=== PATIENT | male | born 1950 | race Caucasian/White ===

== ENCOUNTER 2017-01-05 02:40 | Emergency (ER) | payer MEDICARE ==
[~2017-01-05] VITALS: Ht 167.6 cm; Wt 145.2 kg
[~2017-01-05 02:40] MED LIST: NAPROSYN500 M1 PO; ROBAXIN-750750 MG PO
[2017-01-05] MEDS ORDERED: LISINOPRIL40 MG PO (02:54)
[2017-01-05] MEDS ORDERED: LEVOTHYROXINE0.05 M2 PO (02:55)
[2017-01-05] MEDS ORDERED: TRAMADOL 50MG T50 MG PO (02:55)
[2017-01-05] MEDS ORDERED: NOVOLIN 70/30 710 ML SC ×2 (02:56)
[2017-01-05] MEDS ORDERED: TOLTERODINE TART4 MG PO (02:57)
--- NOTE | 2017-01-05 03:21 | Emergency Room Report ---
History of Present Illness Time Seen by MD Lacy Presenting Problem in Triage Pt arrived:Wheelchair Presenting Problem:PT C/O RIGHT LEG PAIN X 1 MONTH. PT RPTS PAIN WAS WORSE YESTERDAY. PT RPTS "SORENESS FROM HIP DOWN TO MY FOOT" ON THE RIGHT SIDE. PT DENIES ANY FALLS OR TRAUMAS TO THE LEG. PT RPTS PAIN IN HIS RIGHT KNEE. PT RPTS HE UNABLE TO STRAIGTEN THE RIGHT LEG WITHOUT ASSISTANCE. Onset of symptoms date/time:/ or onset unknown for:MEDICAL HX UNKNOWN Treatment Prior to Arrival: [facility] Provided by: Sepsis Risk Assessment: Temp: 98.6 B/P: 150/68 MAP: 95 Pulse: 76 Resp: 18 Recent fever? N Clinical Suspician of Infection? N Mental Status: 1 - Regular (Normal Baseline) Sepsis Risk:Low Sepsis Risk Have you (or family members/close friends) recently traveled outside the [place]? N If Yes, where/when: Have you had exposure to infectious disease within the past month? N TB? Other? Specify: Source patient, RN notes reviewed, family, old records Exam Limitations no limitations Comment atraumatic pain rt lowerext with pain inc with slr Cardiac Chest Pain Chest pain indicative of cardiac No Timing/Duration this evening Severity moderate ALLERGIES Coded Allergies: No Known Allergies (01/05/17) Home Medications Active Scripts Naproxen (Naprosyn 500MG Tab) 500 MG PO BID 5 Days Prov: 12/05/13 Reported Medications Lisinopril (Lisinopril 40MG) 40 MG PO DAILY #90 Levothyroxine Sodium 0.05 MG PO DAILY #90 Tramadol Hcl (Tramadol 50MG) 50 MG PO PRN PRN PAIN #120 INSULIN NPH HUM/REG INSULIN HM (Novolin 70-30 100 Unit/Ml Vial) 70 UNITS SC AM #100 INSULIN NPH HUM/REG INSULIN HM (Novolin 70-30 100 Unit/Ml Vial) 55 UNITS SC QHS Tolterodine Tartrate (Tolterodine Tartrate ER) 4 MG PO DAILY #30 History Medical History General CAD? No Angina: No MO: No Hypertension? Yes Hyperlipidemia? Yes CHF? No DVT? Yes PE? Yes COPD? No Asthma? No Anemia? No GERD? No Gastric ulcers? No GI Bleed? No Hernia? No Thyroid Problems? No Hypothyroidism? No CVA? No Seizures? No Diabetes? Yes Insulin Dependent: Yes Insulin Pump: No Home FSBS? Yes Renal Insuffiency? No End Stage Renal Disease? No UTI? No Stones? No BPH? No GB Disease: No Nephritic Syndrome? No Asplenia? No Hepatitis? No Sickle Cell Disease? No Arthritis? Yes Migraines? No Cataracts? No Glaucoma? No MRSA? No HIV? No TB? No Anxiety? No Depression? No Cancer? No More? No Immunization Hx DT/Tetanus Unknown Surgical Hx Previous Surgery?Y TRACHEOSTOMY Social History Smoking Hx Smoker: Never Smoker Tobacco: No Alcohol Alcohol: No Drugs none Review of Systems All Other Systems Reviewed and Negative Constitutional denies fever Eyes denies drainage ENT denies: ear discharge, epistaxis. Respiratory denies cough, denies shortness of breath, denies wheezing Cardiovascular denies chest pain, denies palpitations, denies syncope Gastrointestinal denies abdominal pain, denies diarrhea, denies vomiting Genitourinary denies: dysuria, frequency, hesitancy, hematuria. Musculoskeletal back pain, denies joint pain, denies joint swelling, denies neck pain Skin denies rash Psychiatric/Neurological denies headache, denies seizure Physical Exam Vital Signs Vital Signs Date Time Temp Pulse Resp B/P Pulse O2 O2 Flow FiO2 Ox Delivery Rate 01/05 0420 71 20 145/77 97 01/05 0417 20 01/05 0248 98.6 76 18 150/68 97 - WBC >12,000 or <4,000 or 10% bands? 2 or more SIRS Criteria Met? B/P:145/77 MAP:95 Creatinine >2.0? UA output<0.5ml/kg/hr for 2 hrs? Platelet count >100,000? Lactate >2.0mmol/1? INR >1.2 or PTT > than 60 sec? Evidence of Organ Dysfunction? Provider documented clinical suspician of infection? N Sepsis Criteria Count: 0 Sepsis Risk: Low Sepsis Risk General Appearance no apparent distress Eye Exam - bilateral eye PERRL Ear, Nose, Throat normal ENT inspection Neck non-tender Respiratory Status No: respiratory distress. Cardiovascular regular rate/rhythm Peripheral Pulses Pulses normal Yes Back no vertebral tenderness Extremities no calf tenderness, pedal edema Strength 3 Lower Ext (L), 3 Lower Ext (R), 4 Upper Ext (L), 4 Upper Ext (R) Neurologic alert, educational sign language interpreter II-XII nml as tested, no motor/sensory deficits Reflexes Reflexes normal No Mental status normal mood/affect Skin no rash cons.w/shingles Medical Decision Making LABS/Meds/Orders Pt receiving controlled substance in ED? No Results/Orders Laboratory Tests 01/05/17314: Sodium 141, Potassium 3.9, Chloride 104, Carbon Dioxide 26, BUN 24 H, Creatinine 1.0, Estimated Creat Clear 147, Estimated GFR (MDRD) 75, Glucose 158 H, Calcium 9.0, Total Bilirubin 0.2, AST 12 L, ALT 26, Alkaline Phosphatase 86, Total Protein 7.4, Albumin 3.1 L, Globulin 4.3 H, Albumin/Globulin Ratio 0.7 L, PT 37.8 H, INR 3.53 H, WBC 7.9, RBC 4.51 L, Hgb 11.8 L, Hct 36.5 L, MCV 81.0 L, RDW 14.7, Plt Count 248, MPV 5.5 L, Gran % 67.3, Gran # 5.3, Lymphocytes % 22.3, Monocytes % 7.1, Eosinophils % 3.0, Basophils % 0.5, Lymphocytes # 1.8, Monocytes # 0.6, Eosinophils # 0.2, Basophils # 0.0, PUBS MCHC 32.2, ESR 64 H, MCH 26.1 L Current Medication Orders Sig/Luigi Start time Last Medication Dose Route Stop Time Status Admin Ketorolac 30 MG ONCE ONE 01/05 415 DC 01/05 Tromethamine IV 01/057 Ketorolac 0 .STK-MED ONE 01/05 414 DC Tromethamine .ROUTE Sodium Chloride 10 ML PRN PRN 01/05 033 AC IV 01/06 318 Orders Procedure Date/time Status DIET-NOTHING BY MOUTH 01/[address] LUMBAR SPINE W/O CONTRAST 01/[address] SCAN REQ 01/05 319 Active IV SALINE LOCK 01/05 319 Active PROTHROMBIN TIME 01/05 319 Complete SED RATE 01/05 319 Complete COMPLETE METABOLIC PANEL 01/05 319 Complete CBC WITH AUTO DIFF 01/05 319 Complete XRAY/CT/US XRAY/CT/US CT L-spine CT interpretation by discussed w/radiologist Time results known: 05 CT Results no fracture seen Departure Departure Time of Disposition Disposition DC Home or Self Care(routine) Clinical Impression Primary Impression: Lumbar disc disease with radiculopathy Condition STABLE Patient Instructions DI for Sciatica Additional Instructions use meds and see pcp Discharge Counseling Counseled pt/family regarding diagnosis, test results, medications/RX, follow up needs Prescriptions Current Visit Scripts HYDROCODONE/ACETAMINOPHEN ([place] 5-325 Tablet) 1 TAB PO Q6HP PRN pain #10 TAB ED Critical Care Critical Care No at [id number]
[2017-01-05 03:22] LABS: LYMPH # 1.8 K/mm3 (0.7-4.5); LYMPH % 22.3 % (10-50)
[2017-01-05 03:25] LABS: HEMOGLOBIN 11.8 g/dL (14.1-18.0)
[2017-01-05] MEDS ORDERED: NORCO 325 MG-51 TAB PO (05:13)
[2017-01-05 05:34] VITALS: BP 145/77
--- NOTE | 2017-01-07 07:25 | RADIOLOGY REPORT PS360 ---
CT LUMBAR SPINE W/O CONTRAST Ordering Physician: Elizabeth Knox MD Patient Age: 66 years: Male HISTORY: LBP TECHNIQUE: Helical CT scanning performed lumbar spine with sagittal and coronal reconstruction CT workstation FINDINGS large patient. Large sized diminishes resolution. The lumbar vertebral bodies show no acute fracture. No subluxation. There are degenerative changes. L5/S1 bilateral pars defects. Appear most likely chronic No unremarkable spondylolisthesis.. Moderate hypertrophic changes involving posterior elements including the pars defects yield slight tapering and lateral narrowing of spinal canal. Disc intact L4/5. Disc appears intact facet and ligament flavum hypertrophy slightly narrow spinal canal L3/4. Disc intact. Mild bilateral facet arthropathy. L2/3. Disc intact. (L1/2 T12/L1 disc. Marginal osteophytes are seen throughout the lumbar spine become most evident superiorly into the thoracolumbar junction region is most evident anteriorly to the right more than left. Bilateral degenerative changes SI joints, Large bowel imaged noting mild colonic diverticulosis with no diverticulitis. Lower pelvis not included the studies -IMPRESSION: No acute fracture lumbar spine. Developing Degenerative changes Chronic appearing Bilateral pars defect L5. No remarkable listhesis associated
== END 2017-01-05 05:35 | disposition home or self-care (01) ==
LOC: ER 02:40
PROVIDERS: Emergency Medicine
DX: M51.16 Intervertebral disc disorders with radiculopathy, lumbar region (principal); I10 Essential (primary) hypertension; E11.9 Type 2 diabetes mellitus without complications; Z79.4 Long term (current) use of insulin